=== PATIENT | female | born 1965 | race African-American/Black ===

== ENCOUNTER → 2017-10-21 | Outpatient (CLI) | payer OTHER | END | disposition home or self-care (01) | LOC: RAD 08:55 | DX: M25.551 Pain in right hip (principal); M25.511 Pain in right shoulder; M25.512 Pain in left shoulder; R29.6 Repeated falls | CPT/HCPCS: 73030; 73502 ==

== ENCOUNTER → 2018-04-06 | Outpatient (CLI) | payer OTHER ==
[2018-04-06 10:14] LABS: BASO # 0.1 x10^3/uL (0.0-0.2); BASO % 1 % (0-3); EOS # 0.1 x10^3/uL (0.0-0.7); EOS % 1 % (0-3); HEMATOCRIT 36.3 % (36.0-47.0); HEMOGLOBIN 12.5 g/dL (12.0-15.5); LYMPH # 1.8 x10^3/uL (1.0-4.8); LYMPH % 21 % (24-48); MEAN CORPUSCULAR HEMOGLOBIN 31 pg (25-35); MEAN CORPUSCULAR HGB CONC 35 g/dL (31-37); MEAN CORPUSCULAR VOLUME 88 fL (79-100); MONO # 0.7 x10^3/uL (0.0-1.1); MONO % 8 % (0-9); NEUT # 6.2 x10^3uL (1.8-7.7); NEUT % 69 % (31-73); PLATELET COUNT 228 x10^3/uL (140-400); RED BLOOD COUNT 4.11 x10^6/uL (3.50-5.40); RED CELL DISTRIBUTION WIDTH 14.8 % (11.5-14.5)
[2018-04-06 10:31] LABS: ALBUMIN 3.8 g/dL (3.4-5.0); ALBUMIN/GLOBULIN RATIO 0.7 (1.0-1.7); CALCIUM 9.2 mg/dL (8.5-10.1); CREATININE 1.6 mg/dL (0.6-1.0); GFR 41.1; POTASSIUM 3.6 mmol/L (3.5-5.1); TOTAL BILIRUBIN 0.5 mg/dL (0.2-1.0); TOTAL PROTEIN 9.1 g/dL (6.4-8.2)
--- NOTE | 2018-04-06 14:00 | RAD ---
Chest, 2 views, 04/06/2018: HISTORY: Shortness of breath The left ventricle is mildly prominent. There is mild tortuosity of the thoracic aorta. The pulmonary vascularity is normal. No pulmonary infiltrate is seen. There is no evidence of pleural fluid. Surgical clips are present in the left upper quadrant of the abdomen. IMPRESSION: No acute cardiopulmonary abnormality is detected Electronically signed by: Alberto Rodrigez MD (04/06/2018 1:37 PM) [facility]
--- NOTE | 2018-04-06 14:00 | RAD ---
Lumbar spine, 2 views, 04/06/2018: HISTORY: Low back pain There are 4 lumbar type vertebral bodies. The intervertebral disc spaces are well-maintained. There are minimal scattered marginal spurs. There are mild sclerotic changes involving the facet joints in the lower lumbar spine. No fracture or subluxation is evident. The paraspinous soft tissues are unremarkable. IMPRESSION: 1. Mild degenerative change. 2. No acute bony abnormality is detected. Electronically signed by: Alberto Rodrigez MD (04/06/2018 1:39 PM) [facility]
== END | disposition home or self-care (01) ==
LOC: RAD 09:33
PROVIDERS: ATTEND Neuromusculoskeletal Medicine, Sports Medicine
DX: M47.896 Other spondylosis, lumbar region (principal); R06.02 Shortness of breath
CPT/HCPCS: 36415; 71046; 72100; 80053; 85025